=== PATIENT | female | born 1990 | race Two or more races ===

== ENCOUNTER 2021-01-17 12:55 | Emergency (ER) | payer OTHER ==
[~2021-01-17] VITALS: Ht 162.6 cm; Wt 131.5 kg
== END 2021-01-17 14:59 | disposition home or self-care (01) ==
LOC: EDBD 12:55 → ER 12:55
DX: O26.891 Other specified pregnancy related conditions, first trimester (principal); O26.851 Spotting complicating pregnancy, first trimester; Z3A.01 Less than 8 weeks gestation of pregnancy

== ENCOUNTER 2021-01-26 14:28 | Emergency (ER) | payer OTHER ==
[~2021-01-26] VITALS: Ht 162.6 cm; Wt 131.5 kg
[2021-01-26] MEDS ORDERED: PRENA1 TRUE CO1 EACH (14:59)
== END 2021-01-26 19:54 | disposition home or self-care (01) ==
LOC: ER 14:28
DX: O46.8X1 Other antepartum hemorrhage, first trimester (principal); Z3A.01 Less than 8 weeks gestation of pregnancy

== ENCOUNTER 2021-05-04 07:55 | Outpatient (CLI) | payer OTHER ==
[~2021-05-04 07:55] MED LIST: PRENA1 TRUE CO1 EACH
[2021-05-30] MEDS ORDERED: ADULT ASPIRIN81 MG (12:47)
[2021-05-30] MEDS ORDERED: FLUTICASONE-SA1 EAC5 (12:47)
== END 2021-05-04 09:15 | disposition home or self-care (01) ==
LOC: PRENATAL 07:55
PROVIDERS: ATTEND Obstetrics & Gynecology Maternal & Fetal Medicine
DX: O35.0XX0 Maternal care for (suspected) central nervous system malformation in fetus, not applicable or unspecified (principal); O35.3XX0 Maternal care for (suspected) damage to fetus from viral disease in mother, not applicable or unspecified; O99.210 Obesity complicating pregnancy, unspecified trimester; Z3A.20 20 weeks gestation of pregnancy

== ENCOUNTER → 2021-05-30 | Emergency (ER) | payer OTHER ==
[~2021-05-30] VITALS: Ht 160 cm; Wt 125.2 kg
[~2021-05-30] MED LIST changes: +ADULT ASPIRIN81 MG; +FLUTICASONE-SA1 EAC5
== END | disposition home or self-care (01) ==
LOC: ER 16:17
DX: O26.892 Other specified pregnancy related conditions, second trimester (principal); J45.998 Other asthma; Z91.040 Latex allergy status; Z91.013 Allergy to seafood; Z3A.21 21 weeks gestation of pregnancy; Z20.822 Contact with and (suspected) exposure to COVID-19

== ENCOUNTER → 2021-05-30 | Emergency (ER) | payer OTHER ==
[~2021-05-30] VITALS: Ht 160 cm; Wt 125.2 kg
== END | disposition home or self-care (01) ==
LOC: ER 12:25
DX: Z53.21 Procedure and treatment not carried out due to patient leaving prior to being seen by health care provider (principal); Z20.822 Contact with and (suspected) exposure to COVID-19

== ENCOUNTER 2021-06-23 08:19 | Emergency (ER) | payer OTHER ==
[~2021-06-23] VITALS: Ht 160 cm; Wt 125.2 kg
== END 2021-06-23 10:22 | disposition home or self-care (01) ==
LOC: ER 08:19
DX: O26.892 Other specified pregnancy related conditions, second trimester (principal); Z3A.27 27 weeks gestation of pregnancy; O24.419 Gestational diabetes mellitus in pregnancy, unspecified control; M94.0 Chondrocostal junction syndrome [Tietze]; Z91.040 Latex allergy status; Z91.013 Allergy to seafood; R00.2 Palpitations

== ENCOUNTER 2021-08-18 12:14 | Outpatient (CLI) | payer OTHER ==
[2021-08-19] MEDS ORDERED: GLUMETZA500 MG PO (13:30)
[2021-08-19] MEDS ORDERED: CEFADROXIL500 MG PO (18:03)
== END 2021-08-18 13:42 | disposition home or self-care (01) ==
LOC: PRENATAL 12:14
PROVIDERS: ATTEND Obstetrics & Gynecology Maternal & Fetal Medicine
DX: O26.849 Uterine size-date discrepancy, unspecified trimester (principal); O35.0XX0 Maternal care for (suspected) central nervous system malformation in fetus, not applicable or unspecified; O24.419 Gestational diabetes mellitus in pregnancy, unspecified control; O99.210 Obesity complicating pregnancy, unspecified trimester; Z3A.35 35 weeks gestation of pregnancy

== ENCOUNTER 2021-08-19 13:13 | Outpatient (CLI) | payer OTHER ==
[2021-08-19] MEDS ORDERED: GLUMETZA500 MG PO (13:30)
[2021-08-19] MEDS ORDERED: CEFADROXIL500 MG PO (18:03)
== END 2021-08-19 18:57 | disposition home or self-care (01) ==
LOC: OBS/DEL 13:13
PROVIDERS: ATTEND Obstetrics & Gynecology
DX: O47.03 False labor before 37 completed weeks of gestation, third trimester (principal); O23.43 Unspecified infection of urinary tract in pregnancy, third trimester; N39.0 Urinary tract infection, site not specified; Z3A.36 36 weeks gestation of pregnancy; Z91.040 Latex allergy status; Z91.013 Allergy to seafood

== ENCOUNTER 2021-09-03 14:45 | Inpatient (IN) | payer OTHER ==
[~2021-09-03] VITALS: Ht 160 cm; Wt 125.2 kg
[~2021-09-03 14:45] MED LIST changes: +CEFADROXIL500 MG PO; +GLUMETZA500 MG PO
[2021-09-09] MEDS ORDERED: FOLIC ACID1 MG PO (07:35)
[2021-09-09] MEDS ORDERED: GLUMETZA500 MG PO (07:36)
[2021-09-09] MEDS ORDERED: METFORMIN HCL1000 MG PO (07:37)
[2021-09-09] MEDS ORDERED: PEPCID AC20 MG PO (07:37)
== END 2021-09-11 15:27 | disposition home or self-care (01) | DRG 768 ==
LOC: LDR 09-09 05:53 → OB/GYN 09-09 20:30
PROVIDERS: ADMIT Obstetrics & Gynecology; ATTEND Obstetrics & Gynecology
PROC: 0DQR0ZZ Repair Anal Sphincter, Open Approach (ICD-10-PCS; 2021-09-09)
PROC: 0UQG7ZZ Repair Vagina, Via Natural or Artificial Opening (ICD-10-PCS; 2021-09-09)
PROC: 3E033VJ Introduction of Other Hormone into Peripheral Vein, Percutaneous Approach (ICD-10-PCS; 2021-09-09)
PROC: 3E0P7VZ Introduction of Hormone into Female Reproductive, Via Natural or Artificial Opening (ICD-10-PCS; 2021-09-09)
PROC: 4A1H7CZ Monitoring of Products of Conception, Cardiac Rate, Via Natural or Artificial Opening (ICD-10-PCS; 2021-09-09)
PROC: 10E0XZZ Delivery of Products of Conception, External Approach (ICD-10-PCS; principal; 2021-09-09 17:45)
DX: O70.21 Third degree perineal laceration during delivery, IIIa (principal); O71.82 Other specified trauma to perineum and vulva; Z3A.39 39 weeks gestation of pregnancy; Z37.0 Single live birth; Z20.822 Contact with and (suspected) exposure to COVID-19